=== PATIENT | female | born 1950 | race Caucasian/White ===

== ENCOUNTER 2017-12-24 08:23 | Inpatient (IN) | payer MEDICARE, OTHER ==
[2017-12-24 08:27] VITALS: BMI 29.9
[2017-12-24 09:29] LABS: BASO # 0.1 K/uL (0.0-0.2); EOS # 0.1 K/uL (0.0-0.7); EOS % 0.7 % (0.0-4.0); HEMOGLOBIN 10.2 g/dL (11.0-16.0); LYMPH # 2.2 K/uL (1.0-4.3); LYMPH % 28.7 % (20.0-40.0); MEAN CELL VOLUME 84.4 fL (81.0-99.0); MEAN CORPUSCULAR HEMOGLOBIN 27.9 pg (27.0-31.0); MEAN PLATELET VOLUME 10.2 fL (7.2-11.7); MONO # 0.6 K/uL (0.0-0.8); MONO % 8.6 % (0.0-10.0); NEUT # 4.6 K/uL (1.8-7.0); RBC 3.66 Mil/uL (3.80-5.20); RED CELL DISTRIBUTION WIDTH 14.9 % (11.5-14.5); WHITE BLOOD COUNT 7.5 K/uL (4.8-10.8)
[2017-12-24 09:46] LABS: ALB/GLOB RATIO 1.3 (1.0-2.1); ALBUMIN 4.4 g/dL (3.5-5.0); ALT/SGPT 23 U/L (9-52); AST/SGOT 21 U/L (14-36); BLOOD UREA NITROGEN 22 mg/dL (7-17); CALCIUM 9.3 mg/dl (8.6-10.4); GFR NON-AFRICAN AMERICAN > 60
--- NOTE | 2017-12-24 09:56 | RAD ---
Date of service: 12/24/2017 PROCEDURE: Right Ankle Radiographs. HISTORY: cellulitis COMPARISON: Correlation made with concurrent radiographs of the right tibia and fibula. FINDINGS: BONES: No definitive radiographic evidence acute displaced fracture nor dislocation. The osseous structures intact. Talar dome intact. Plantar and posterior calcaneal enthesophyte formation present. JOINTS: Normal. No osteoarthritis. Ankle mortise maintained. . SOFT TISSUES: Moderate diffuse bilateral soft tissue swelling medial greater than lateral ; rule out sequela of cellulitis or trauma. Vascular etiology not excluded. . Suspect small be a small joint effusion OTHER FINDINGS: None. IMPRESSION: No evidence of acute displaced fracture nor dislocation.Moderate diffuse bilateral soft tissue swelling medial greater than lateral ; rule out sequela of cellulitis or trauma. Vascular etiology not excluded. There also appears to be a small joint effusion.
--- NOTE | 2017-12-24 09:57 | RAD ---
Date of service: 12/24/2017 HISTORY: SOB COMPARISON: No prior. TECHNIQUE: Chest PA and lateral FINDINGS: LUNGS: No acute infiltrates. Mild biapical pleural thickening. PLEURA: As above. No significant pleural effusion identified. No pneumothorax apparent. CARDIOVASCULAR: Normal. OSSEOUS STRUCTURES: Mild multilevel degenerative spondylosis of the thoracic spine. VISUALIZED UPPER ABDOMEN: Normal. OTHER FINDINGS: None. IMPRESSION: No active disease. Mild biapical pleural thickening
--- NOTE | 2017-12-24 09:59 | RAD ---
Date of service: 12/24/2017 PROCEDURE: Radiographs of the right tibia and fibula. HISTORY: Cellulitis COMPARISON: None available TECHNIQUE: Frontal and lateral views obtained. FINDINGS: BONES: No evidence of acute displaced fracture nor dislocation. The osseous structures appear intact. No obvious cortical destructive changes. JOINT SPACES: Unremarkable. OTHER FINDINGS: Mild diffuse infiltration changes of the subcutaneous tissues and mild soft tissue swelling most pronounced about the ankle. Findings may represent cellulitis. Consider followup MRI if further evaluation is required to exclude early osteomyelitis if indicated. . No subcutaneous emphysema or radiopaque foreign bodies. IMPRESSION: No evidence of acute displaced fracture nor dislocation. No definitive cortical destructive changes. Consider followup MRI to exclude early osteomyelitis if indicated. .
--- NOTE | 2017-12-24 10:02 | C.PDOC ---
History Of Present Illness 67 y/o female sent to ED by I&D doctor for further evaluation of right leg cellulitis for 1 month. Patient has been treated with outpatient Antibiotics and no improvement has been noted. Patient denies fever, chills or any other complaints at this time. Time Seen by Provider: 12/24/17 08:43 Chief Complaint (Nursing): Lower Extremity Problem/Injury History Per: Patient History/Exam Limitations: no limitations Onset/Duration Of Symptoms: Days Current Symptoms Are (Timing): Still Present Past Medical History Reviewed: Historical Data, Nursing Documentation, Vital Signs Vital Signs: Last Vital Signs Temp 98.3 F 12/24/17 08:33 Pulse 58 L 12/24/17 10:40 Resp 18 12/24/17 10:40 BP 109/65 12/24/17 10:40 Pulse Ox 97 12/24/17 10:40 - Medical History PMH: HTN Surgical History: No Surg Hx Family History: States: No Known Family Hx - Social History Hx Tobacco Use: No Hx Alcohol Use: No Hx Substance Use: No Review Of Systems Except As Marked, All Systems Reviewed And Found Negative. Musculoskeletal: Positive for: Leg Pain Physical Exam - Physical Exam Appears: Non-toxic, No Acute Distress Skin: Warm, Dry, No Rash, Other (right anterior tib-fib distal ulceration and cellulitic process with erythema) Head: Atraumatic, Normacephalic Eye(s): bilateral: Normal Inspection Oral Mucosa: Moist Cardiovascular: Rhythm Regular Respiratory: Normal Breath Sounds, No Rales, No Rhonchi, No Wheezing Gastrointestinal/Abdominal: Soft, No Tenderness, No Guarding, No Rebound Extremity: Normal ROM, No Calf Tenderness, Capillary Refill (<2 seconds), No Deformity Pulses: Right Dorsalis Pedis: Normal Neurological/Psych: Oriented x3, Normal Motor, Normal Sensation ED Course And Treatment - Laboratory Results Result Diagrams: 12/24/17 09:24 12/24/17 09:24 ECG: Interpreted By Me, Viewed By Me ECG Rhythm: Sinus Rhythm, R BBB Rate From EC (BPM) O2 Sat by Pulse Oximetry: 100 (RA ) Pulse Ox Interpretation: Normal Medical Decision Making Medical Decision Making: Assessment: Cellulitis Disposition Discussed With : Marco A Rosales Doctor Will See Patient In The: Hospital Counseled Patient/Family Regarding: Studies Performed, Diagnosis - Disposition Referrals: Lani Solares MD [Staff Provider] - Disposition: HOSPITALIZED Disposition Time: 11:05 Condition: FAIR Forms: [facility] (Tajik) - Clinical Impression Clinical Impression: Cellulitis - Scribe Statement The provider has reviewed the documentation as recorded by the Scriblorraine Thorpe All medical record entries made by the Jamibe were at my direction and personally dictated by me. I have reviewed the chart and agree that the record accurately reflects my personal performance of the history, physical exam, medical decision making, and the department course for this patient. I have also personally directed, reviewed, and agree with the discharge instructions and disposition.
[2017-12-24] MEDS ORDERED: Dextrose 5%/0.45% NS 1,000 ML IV ONE (11:38)
[2017-12-24] MEDS: Dextrose 5%/0.45% NS 1,000 ML IV SCH (11:45)
[2017-12-24] MEDS: Ceftaroline 600 MG in Sodium Chloride 0.9% 100 ML IVPB SCH ×2 (12:00→22:43)
--- NOTE | 2017-12-24 17:41 | CARD ---
APPROVED REPORT Date of service: 12/24/2017 EKG Measurement Heart [id number] <Conclusion> Normal sinus rhythm Right bundle branch block Abnormal ECG
--- NOTE | 2017-12-24 19:59 | CP.PCM.HP ---
History of Present Illness - History of Present Illness History of Present Illness: 67 years old female complaining of a cellulitis of the right lower leg for a month. She was treated as an outpatient with oral antibiotic without improvement. She is hospitalized for IV antibiotics. Present on Admission - Present on Admission Any Indicators Present on Admission: No Review of Systems - Integumentary Additional comments: Cellulitis of the right lower leg. Past Patient History - Past Social History Smoking Status: Former Smoker Alcohol: None Drugs: Denies Home Situation {Lives}: With Family Domestic Violence: Negative - CARDIAC Hx Hypertension: Yes - PSYCHIATRIC Hx Substance Use: No - SURGICAL HISTORY Hx Surgeries: Yes Hx Eye Surgery: Yes (LEFT CATARACT SURGERY PER PATIENT) - ANESTHESIA Hx Anesthesia: Yes Meds Allergies/Adverse Reactions: Allergies Allergy/AdvReac Type Severity Reaction Status Date / Time No Known Allergies Allergy Verified 12/24/17 08:26 Physical Exam - Constitutional Appears: Well, No Acute Distress - Head Exam Head Exam: NORMAL INSPECTION - Eye Exam Eye Exam: Normal appearance Pupil Exam: NORMAL ACCOMODATION - ENT Exam ENT Exam: Normal Exam - Neck Exam Neck exam: Positive for: Normal Inspection - Respiratory Exam Respiratory Exam: Clear to Auscultation Bilateral, NORMAL BREATHING PATTERN - Cardiovascular Exam Cardiovascular Exam: REGULAR RHYTHM - GI/Abdominal Exam GI & Abdominal Exam: Normal Bowel Sounds, Soft - Rectal Exam Rectal Exam: Deferred - Extremities Exam Additional comments: Cellulitis of the right lower leg. - Back Exam Back exam: NORMAL INSPECTION - Neurological Exam Neurological exam: Alert, Oriented x3 - Psychiatric Exam Psychiatric exam: Anxious - Skin Skin Exam: Dry, Intact, Normal Color Results - Vital Signs Recent Vital Signs: Last Vital Signs Temp 98.9 F 12/24/17 16:00 Pulse 68 12/24/17 16:00 Resp 20 12/24/17 16:00 BP 124/58 L 12/24/17 16:00 Pulse Ox 99 12/24/17 16:00 - Labs Result Diagrams: 12/24/17 09:24 12/24/17 09:24 Labs: Laboratory Results - last 24 hr 12/24/17 12/24/17 09:24 09:24 WBC 7.5 RBC 3.66 L Hgb 10.2 L Hct 30.9 L MCV 84.4 MCH 27.9 MCHC 33.0 RDW 14.9 H Plt Count 211 MPV 10.2 Neut % (Auto) 61.0 Lymph % (Auto) 28.7 [place] % (Auto) 8.6 Eos % (Auto) 0.7 Baso % (Auto) 1.0 Neut # (Auto) 4.6 Lymph # (Auto) 2.2 [place] # (Auto) 0.6 Eos # (Auto) 0.1 Baso # (Auto) 0.1 ESR 42 H Sodium 142 Potassium 4.1 Chloride 103 Carbon Dioxide 27 Anion Gap 16 BUN 22 H Creatinine 0.9 Est GFR ( Amer) > 60 Est GFR (Non-Af Amer) > 60 Random Glucose 125 H Calcium 9.3 Total Bilirubin 0.6 AST 21 ALT 23 Alkaline Phosphatase 73 Total Protein 7.9 Albumin 4.4 Globulin 3.5 Albumin/Globulin Ratio 1.3 Assessment & Plan (1) Cellulitis Assessment and Plan: Cellulitis of the right lower leg. On IV antibiotic as per Dr Solares. Status: Acute (2) Hypertension Assessment and Plan: To continue Enalapril. Status: Chronic Decision To Admit - Pt Status Changed To: Hospital Disposition Of: Inpatient - Admit Certification Admit to Inpatient:: After my assessment, the patient will require hospitalization for at least two midnights. This is because of the severity of symptoms shown, intensity of services needed, and/or the medical risk in this patient being treated as an outpatient. - InPatient: Physician Admission Certification:: After my assessments, the patient requires hospitalization for at least 2 midnights. - . Bed Request Type: Regular Admitting Physician: Marco A Rosales
[2017-12-25] MEDS: Dextrose 5%/0.45% NS 1,000 ML IV SCH ×2 (01:00→13:13)
[2017-12-25] MEDS: Enoxaparin 40 mg Syringe SC SCH (09:35)
[2017-12-25] MEDS: Ceftaroline 600 MG in Sodium Chloride 0.9% 100 ML IVPB SCH ×2 (10:22→23:51)
--- NOTE | 2017-12-25 14:02 | CP.PCM.CON ---
History of Present Illness - History of Present Illness History of Present Illness: INFECTIOUS DISEASE CONSULTATION PACO LEUNG MD, FACP 3T [id number] 12/25/2017 CHART REVIEWED PT EXAMINED CASE DISCUSSED WITH PMD DR ENRIQUEZ, DR MARINO, AND DR Aniya NORIEGA THIS PATIENT IS A 67 YEAR OLD FEMALE REFERRED BY DR ENRIQUEZ FOR LOCAL TRAUMA TO HER RIGHT [place]KLE [place]. SHE APPARENTLY WAS TREATED WITH CONVENTIONAL ANTIBIOTICS INITIALLY. INFECTIOUS DISEASE CONSULTATION WAS FOCUSED ON ANTI STREP, MRSA AND ANTI SPOROTRICOSIS TREATMENT. HISTORICALLY SHE HAD A POSSIBLE THORN PENETRATE HER ANTERIOR RIGHT ANKLE(?), POTENTIALLY DUE TO SPOROTHRIX SCHENCKII. HER CONDITION APPEARED TO HAVE A DELAYED RESPONCE AND ADMISSION WAS ADVISED ACCORDINGLY. PMHX: HTN DYSLIPEDEMIA HEART MURMUR DENIES ALERGIES TO MED NO RECENT TOBACCO NO RECENT ETOH FAMILY HX NOT APPLICABLE FROM THE [place] INITIALLY, PER PT. VSS AWAKE ALERT, ANXIUS OVER CONDITION SUPPLE NECT CHEST CLEAR COR RR, MURMUR APPRECIATED MILD IN NATURE BY ASCULATION ABD SOFT LEGS 2= EDEMA ONLY LOWER ANTERIOR RIGHT ANKLE NOW SHOWS DRYING LESION CENTRALLY SINCE STARTING ITRACONAZOLE WITH SOME MILD SEROUS FLUID DUE TO WALKING AND DEPENDENT EDEMA. NO PHLEBITIS, NO LYMPHANGITIS OR LYMPHADENOPATHY NEURO GROSSLY INTACT AFFECT NOTED IMPRESSION: LOCAL CELLULITIS AND POSSIBLE SPOROTRICOSIS INFECTION ANTERIOR RIGHT ANKLE. C/S IV TEFLARO ITRACONAZOLE 200MG PO OD FIRST, MAY NEED PROLONGED TREATMENT. PT ANXIOUS OVER HER SCHEDULED VACATION TIME. CHECK FOR DEEP INFECTION SEEING DR MARINO CARDIOLOGY PODIATRY CALLED IN PERSONALLY. PACO LEUNG MD, FACP TRIPLE BOARD CERTIFIED IN INFECTIOUS DISEASE Past Patient History - Past Medical History & Family History Past Medical History?: Yes - Past Social History Smoking Status: Former Smoker - CARDIAC Hx Hypertension: Yes - MUSCULOSKELETAL/RHEUMATOLOGICAL Hx Falls: Yes - PSYCHIATRIC Hx Substance Use: No - SURGICAL HISTORY Hx Surgeries: Yes Hx Eye Surgery: Yes (LEFT CATARACT SURGERY PER PATIENT) - ANESTHESIA Hx Anesthesia: Yes Hx Anesthesia Reactions: No Meds Allergies/Adverse Reactions: Allergies Allergy/AdvReac Type Severity Reaction Status Date / Time No Known Allergies Allergy Verified 12/24/17 08:26 - Medications Medications: Current Medications Acetaminophen (Tylenol 325mg Tab) 650 mg PO Q6 PRN PRN Reason: Headache Last Admin: 12/24/17 22:43 Dose: 650 mg Enalapril Maleate (Vasotec) 20 mg PO DAILY [facility] Last Admin: 12/25/17 09:34 Dose: 20 mg Enoxaparin Sodium (Lovenox) 40 mg SC DAILY [facility] Last Admin: 12/25/17 09:35 Dose: 40 mg Ceftaroline Fosamil 600 mg/ (Sodium Chloride) 100 mls @ 100 mls/hr IVPB Q12H [facility] PRN Reason: Protocol Last Admin: 12/25/17 10:22 Dose: 100 mls/hr Dextrose/Sodium Chloride (Dextrose 5%/0.45% Ns 1000 Ml) 1,000 mls @ 80 mls/hr IV .[id number] [facility] Last Admin: 12/25/17 13:13 Dose: 80 mls/hr Itraconazole (Sporanox) 200 mg PO DAILY [facility] PRN Reason: Protocol Last Admin: 12/25/17 10:22 Dose: 200 mg Metronidazole (Flagyl) 500 mg PO Q8 [facility] PRN Reason: Protocol Pneumococcal Polyvalent Vaccine (Pneumovax 23 Vaccine) 0.5 ml IM .ONCE ONE Stop: 12/26/17 10:01 Results - Vital Signs Recent Vital Signs: Last Vital Signs Temp 98.7 F 12/25/17 08:00 Pulse 71 12/25/17 08:00 Resp 20 12/25/17 08:00 BP 144/75 12/25/17 09:34 Pulse Ox 99 12/25/17 08:00 - Labs Result Diagrams: 12/24/17 09:24 12/24/17 09:24
--- NOTE | 2017-12-25 14:45 | CP.PCM.PN ---
Subjective - Date & Time of Evaluation Date of Evaluation: 12/25/17 Time of Evaluation: 14:43 - Subjective Subjective: Right lower leg lesion appears to be unchanged with a dry, black central area and erythematous and oozing peripheral area. On IV antibiotics by Dr Solares. Afebrile. Objective - Vital Signs/Intake and Output Vital Signs (last 24 hours): Temp Pulse Resp BP Pulse Ox 98.7 F 71 20 144/75 99 12/25/17 08:00 12/25/17 08:00 12/25/17 08:00 12/25/17 09:34 12/25/17 08:00 Intake and Output: 12/25/17 12/25/17 06:59 18:59 Intake Total 1780 Balance 1780 - Medications Medications: Current Medications Acetaminophen (Tylenol 325mg Tab) 650 mg PO Q6 PRN PRN Reason: Headache Last Admin: 12/24/17 22:43 Dose: 650 mg Enalapril Maleate (Vasotec) 20 mg PO DAILY [facility] Last Admin: 12/25/17 09:34 Dose: 20 mg Enoxaparin Sodium (Lovenox) 40 mg SC DAILY [facility] Last Admin: 12/25/17 09:35 Dose: 40 mg Ceftaroline Fosamil 600 mg/ (Sodium Chloride) 100 mls @ 100 mls/hr IVPB Q12H [facility] PRN Reason: Protocol Last Admin: 12/25/17 10:22 Dose: 100 mls/hr Dextrose/Sodium Chloride (Dextrose 5%/0.45% Ns 1000 Ml) 1,000 mls @ 80 mls/hr IV .[id number] [facility] Last Admin: 12/25/17 13:13 Dose: 80 mls/hr Itraconazole (Sporanox) 200 mg PO DAILY [facility] PRN Reason: Protocol Last Admin: 12/25/17 10:22 Dose: 200 mg Metronidazole (Flagyl) 500 mg PO Q8 [facility] PRN Reason: Protocol Pneumococcal Polyvalent Vaccine (Pneumovax 23 Vaccine) 0.5 ml IM .ONCE ONE Stop: 12/26/17 10:01 Sodium Hypochlorite (Dakins Solution 0.25%) 0.25 ml EXT DAILY ONE Stop: 12/26/17 14:01 - Labs Labs: 12/24/17 09:24 12/24/17 09:24 - Constitutional Appears: Well, No Acute Distress - Head Exam Head Exam: NORMAL INSPECTION - Eye Exam Eye Exam: Normal appearance Pupil Exam: NORMAL ACCOMODATION - ENT Exam ENT Exam: Normal Exam - Neck Exam Neck Exam: Normal Inspection - Respiratory Exam Respiratory Exam: Clear to Ausculation Bilateral, NORMAL BREATHING PATTERN - Cardiovascular Exam Cardiovascular Exam: REGULAR RHYTHM - GI/Abdominal Exam GI & Abdominal Exam: Soft, Normal Bowel Sounds - Rectal Exam Rectal Exam: Deferred - Extremities Exam Additional comments: Mild right pedal edema. - Neurological Exam Neurological Exam: Alert, Awake, Normal Gait, Oriented x3 - Psychiatric Exam Psychiatric exam: Anxious - Skin Additional comments: Lesion of the right lower leg unchanged. Assessment and Plan (1) Cellulitis Assessment & Plan: On antibiotics as per Holly Solares. Status: Acute (2) Hypertension Status: Chronic
--- NOTE | 2017-12-25 14:52 | CP.PCM.CON ---
History of Present Illness - History of Present Illness History of Present Illness: Pdiatry: Patient seen with resident Dr Remedios Yu. Full consult t be dictated by Dr Yu. Patient injured herself in the garden and developed and infection in the anterior aspect of her right ankle. She formed a scab over the area that measures about 5.0cm in diameter with some exudate. we debrided some of the scab and got a culture. Xrays were negative for denis changes. MRI results are not available as of yet. We ordered dakins's solution soaks to be done once per shift in order to try to loosen the scab. We will check patient on a daily basis. Past Patient History - Past Medical History & Family History Past Medical History?: Yes - Past Social History Smoking Status: Former Smoker - CARDIAC Hx Hypertension: Yes - MUSCULOSKELETAL/RHEUMATOLOGICAL Hx Falls: Yes - PSYCHIATRIC Hx Substance Use: No - SURGICAL HISTORY Hx Surgeries: Yes Hx Eye Surgery: Yes (LEFT CATARACT SURGERY PER PATIENT) - ANESTHESIA Hx Anesthesia: Yes Hx Anesthesia Reactions: No Meds Allergies/Adverse Reactions: Allergies Allergy/AdvReac Type Severity Reaction Status Date / Time No Known Allergies Allergy Verified 12/24/17 08:26 - Medications Medications: Current Medications Acetaminophen (Tylenol 325mg Tab) 650 mg PO Q6 PRN PRN Reason: Headache Last Admin: 12/24/17 22:43 Dose: 650 mg Enalapril Maleate (Vasotec) 20 mg PO DAILY [facility] Last Admin: 12/25/17 09:34 Dose: 20 mg Enoxaparin Sodium (Lovenox) 40 mg SC DAILY [facility] Last Admin: 12/25/17 09:35 Dose: 40 mg Ceftaroline Fosamil 600 mg/ (Sodium Chloride) 100 mls @ 100 mls/hr IVPB Q12H [facility] PRN Reason: Protocol Last Admin: 12/25/17 10:22 Dose: 100 mls/hr Dextrose/Sodium Chloride (Dextrose 5%/0.45% Ns 1000 Ml) 1,000 mls @ 80 mls/hr IV .[id number] [facility] Last Admin: 12/25/17 13:13 Dose: 80 mls/hr Itraconazole (Sporanox) 200 mg PO DAILY [facility] PRN Reason: Protocol Last Admin: 12/25/17 10:22 Dose: 200 mg Metronidazole (Flagyl) 500 mg PO Q8 [facility] PRN Reason: Protocol Pneumococcal Polyvalent Vaccine (Pneumovax 23 Vaccine) 0.5 ml IM .ONCE ONE Stop: 12/26/17 10:01 Sodium Hypochlorite (Dakins Solution 0.25%) 0.25 ml EXT DAILY ONE Stop: 12/26/17 14:01 Results - Vital Signs Recent Vital Signs: Last Vital Signs Temp 98.7 F 12/25/17 08:00 Pulse 71 12/25/17 08:00 Resp 20 12/25/17 08:00 BP 144/75 12/25/17 09:34 Pulse Ox 99 12/25/17 08:00 - Labs Result Diagrams: 12/24/17 09:24 12/24/17 09:24
[2017-12-25] MEDS ORDERED: Dakin's Topical 0.25%-Half Strength (480 ml) EXT SCH (15:00)
--- NOTE | 2017-12-25 16:42 | CP.PCM.CON ---
History of Present Illness - History of Present Illness History of Present Illness: Podiatry consult note for attending Dr. Ocampo, 67 y/o female with PMHx of HTN was seen and evaluated at bedside for painful cellulitis to the right leg. Patient reports she injured herself with a thorn in her backyard several weeks ago. Patient reports it has been infected since and is getting worse. Patient states she saw her medical doctor who prescribed antibiotics, however sent her to the ED on 12/24/17 as it is not improving. He would like patient to be started on IV Antibiotics after complete workup has been established. Patient denies any other pedal complaints. Patient states she had a fever several days ago, however, denies at F/N/V/SOB/CP at this time. PMHx: HTN PSHx: denied by patient Social History: denies ETOH or tobacco use ALL: NKDA Review of Systems - Review of Systems All systems: reviewed and no additional remarkable complaints except Review of Systems: As per HPI Past Patient History - Past Medical History & Family History Past Medical History?: Yes - Past Social History Smoking Status: Former Smoker - CARDIAC Hx Hypertension: Yes - MUSCULOSKELETAL/RHEUMATOLOGICAL Hx Falls: Yes - PSYCHIATRIC Hx Substance Use: No - SURGICAL HISTORY Hx Surgeries: Yes Hx Eye Surgery: Yes (LEFT CATARACT SURGERY PER PATIENT) - ANESTHESIA Hx Anesthesia: Yes Hx Anesthesia Reactions: No Meds Allergies/Adverse Reactions: Allergies Allergy/AdvReac Type Severity Reaction Status Date / Time No Known Allergies Allergy Verified 12/24/17 08:26 - Medications Medications: Current Medications Acetaminophen (Tylenol 325mg Tab) 650 mg PO Q6 PRN PRN Reason: Headache Last Admin: 12/24/17 22:43 Dose: 650 mg Enalapril Maleate (Vasotec) 20 mg PO DAILY [facility] Last Admin: 12/25/17 09:34 Dose: 20 mg Enoxaparin Sodium (Lovenox) 40 mg SC DAILY [facility] Last Admin: 12/25/17 09:35 Dose: 40 mg Ceftaroline Fosamil 600 mg/ (Sodium Chloride) 100 mls @ 100 mls/hr IVPB Q12H [facility] PRN Reason: Protocol Last Admin: 12/25/17 10:22 Dose: 100 mls/hr Dextrose/Sodium Chloride (Dextrose 5%/0.45% Ns 1000 Ml) 1,000 mls @ 80 mls/hr IV .[id number] [facility] Last Admin: 12/25/17 13:13 Dose: 80 mls/hr Itraconazole (Sporanox) 200 mg PO DAILY [facility] PRN Reason: Protocol Last Admin: 12/25/17 10:22 Dose: 200 mg Metronidazole (Flagyl) 500 mg PO Q8 [facility] PRN Reason: Protocol Last Admin: 12/25/17 15:16 Dose: 500 mg Pneumococcal Polyvalent Vaccine (Pneumovax 23 Vaccine) 0.5 ml IM .ONCE ONE Stop: 12/26/17 10:01 Sodium Hypochlorite (Dakins Solution 0.25%) 0.25 ml EXT DAILY [facility] Physical Exam - Constitutional Appears: Well, Non-toxic, No Acute Distress - Head Exam Head Exam: ATRAUMATIC, NORMOCEPHALIC - Extremities Exam Additional comments: Right Lower Extremity Exam: VASC: DP and PT fully palpable, CFT less than 3 seconds X 10, TG warm to warm, with increasing warmth surrounding the wound, minimal edema noted to the right yumiko-wound region NEURO: grossly intact DERM: 5 cm ulceration noted to the right anterior leg proximal to the ankle joint, wound bed has areas of necrotic skin, granular skin and some fibrosis, some scar formation noted as well, yumiko-wound edema and erythema present, no probe to bone, positive for malodor, positive for drainage ORTHO: patient complains of pain on palpation to the wound area - Neurological Exam Neurological exam: Alert, Oriented x3 - Psychiatric Exam Psychiatric exam: Normal Affect, Normal Mood Results - Vital Signs Recent Vital Signs: Last Vital Signs Temp 98.7 F 12/25/17 08:00 Pulse 71 12/25/17 08:00 Resp 20 12/25/17 08:00 BP 144/75 12/25/17 09:34 Pulse Ox 99 12/25/17 08:00 - Labs Result Diagrams: 12/24/17 09:24 12/24/17 09:24 Assessment & Plan - Assessment and Plan (Free Text) Assessment: 67 y/o female with PMHx of HTN was seen and evaluated at bedside for painful cellulitis to the right leg. Plan: Patient seen and evaluated at bedside with Dr. Ocampo Plan discussed with attending Wound scab formation debrided with #10 blade sterile to obtain a wound culture Wound Culture collected- Pending result Ankle and Tib/Fib X-rays- no signs of osteomyelitis noted, signs of soft tissue swelling MRI- pending read Duplex results- pending ID consult has already been placed- recommendations appreciated Patient wound dressed with Dakin's soaked Wet to dry dressing (gauze, ABD, Kerlix) Dakin's is to be poured over dressing every 6-8 hours Patient and nursing are both aware Podiatry will continue to follow patient while in house Thank you for the consult - Date & Time Date: 12/25/17 Time: 16:50
[2017-12-25] MEDS: Dakin's Topical 0.25%-Half Strength (480 ml) EXT SCH (16:53)
[2017-12-26] MEDS: Dextrose 5%/0.45% NS 1,000 ML IV SCH ×4 (00:45→17:17)
[2017-12-26 09:31] LABS: BASO % 0.2 % (0.0-2.0); EOS # 0.1 K/uL (0.0-0.7); HEMOGLOBIN 10.1 g/dL (11.0-16.0); LYMPH # 1.5 K/uL (1.0-4.3); LYMPH % 26.5 % (20.0-40.0); MEAN CELL VOLUME 83.5 fL (81.0-99.0); MEAN CORPUSCULAR HEMOGLOBIN 27.8 pg (27.0-31.0); MEAN CORPUSCULAR HGB CONC 33.3 g/dL (33.0-37.0); MEAN PLATELET VOLUME 9.9 fL (7.2-11.7); MONO # 0.6 K/uL (0.0-0.8); MONO % 9.5 % (0.0-10.0); NEUT # 3.6 K/uL (1.8-7.0); NEUT % 61.8 % (50.0-75.0); RBC 3.61 Mil/uL (3.80-5.20); RED CELL DISTRIBUTION WIDTH 14.7 % (11.5-14.5); WHITE BLOOD COUNT 5.8 K/uL (4.8-10.8)
[2017-12-26 09:47] LABS: ALB/GLOB RATIO 1.1 (1.0-2.1); ALBUMIN 3.5 g/dL (3.5-5.0); ALT/SGPT 18 U/L (9-52); AST/SGOT 14 U/L (14-36); BLOOD UREA NITROGEN 18 mg/dL (7-17); CALCIUM 8.8 mg/dl (8.6-10.4); GFR NON-AFRICAN AMERICAN > 60
[2017-12-26] MEDS ORDERED: Pneumococcal 23-Valent Vaccine IM ONE (10:00)
[2017-12-26] MEDS: Enoxaparin 40 mg Syringe SC SCH (10:13)
[2017-12-26] MEDS: Ceftaroline 600 MG in Sodium Chloride 0.9% 100 ML IVPB SCH ×2 (10:17→23:51)
[2017-12-26] MEDS: Dakin's Topical 0.25%-Half Strength (480 ml) EXT SCH (10:17)
--- NOTE | 2017-12-26 14:19 | CP.PCM.PN ---
Subjective - Date & Time of Evaluation Date of Evaluation: 12/26/17 Time of Evaluation: 14:07 - Subjective Subjective: INFECTIOUS DISEASE PROGRESS NOTES PACO LEUNG MD, FACP 12/26/2017 3T 361-B THIS PT APPEARS TO BE RESPONDING TO ID/POD/MED MANAGEMENT THE RIGHT ANKLE WOUND HAS LESSENED IN PERIPHERAL REDNES AND THE CENTER AREA WAS CLEANED AND MANAGED BY DR JONES POD SPECIALIST. SHE PRESENTLY HAS A DAKINS SOLUTION WET DRESSING TO LOSSEN HER DRIED ESCHAR. OF NOTE HER HGH A1C IS 6.7 WHICH EXPLAINS A DELAY IN HER RESPONCE MEDICALLY. NO LYMPHANGITIS AND NO CELLULITIS APPRECIATED BEYOND HER INITAL DESCRIPTION. RECOMMEND TO ADJUST HER DIET ACCORDINGLY, AFFECT APPRECIATED, MRI APPARENTLY ORDERED... LABS REVIEWED PT EXAMINED DISCUSSION NOTED. Objective - Vital Signs/Intake and Output Vital Signs (last 24 hours): Temp Pulse Resp BP Pulse Ox 98.2 F 63 20 148/80 97 12/26/17 08:37 12/26/17 08:37 12/26/17 08:37 12/26/17 10:12 12/26/17 08:37 Intake and Output: 12/26/17 12/26/17 06:59 18:59 Intake Total 1000 Balance 1000 - Medications Medications: Current Medications Acetaminophen (Tylenol 325mg Tab) 650 mg PO Q6 PRN PRN Reason: Headache Last Admin: 12/24/17 22:43 Dose: 650 mg Enalapril Maleate (Vasotec) 20 mg PO DAILY [facility] Last Admin: 12/26/17 10:12 Dose: 20 mg Enoxaparin Sodium (Lovenox) 40 mg SC DAILY [facility] Last Admin: 12/26/17 10:13 Dose: 40 mg Ceftaroline Fosamil 600 mg/ (Sodium Chloride) 100 mls @ 100 mls/hr IVPB Q12H [facility] PRN Reason: Protocol Last Admin: 12/26/17 10:17 Dose: 100 mls/hr Dextrose/Sodium Chloride (Dextrose 5%/0.45% Ns 1000 Ml) 1,000 mls @ 80 mls/hr IV .[id number] [facility] Last Admin: 12/26/17 13:44 Dose: Not Given Itraconazole (Sporanox) 200 mg PO DAILY [facility] PRN Reason: Protocol Last Admin: 12/26/17 10:12 Dose: 200 mg Metronidazole (Flagyl) 500 mg PO Q8 [facility] PRN Reason: Protocol Last Admin: 12/26/17 13:58 Dose: 500 mg Sodium Hypochlorite (Dakins Solution 0.25%) 0.25 ml EXT DAILY [facility] Last Admin: 12/26/17 10:17 Dose: 0.25 ml - Labs Labs: 12/26/17 09:19 12/26/17 09:19 Assessment and Plan (1) Sporotrichosis Status: Acute (2) Cellulitis Status: Acute (3) Diabetes Status: Acute (4) Hypertension Status: Chronic (5) Affective personality disorder Status: Suspected
--- NOTE | 2017-12-26 17:15 | CP.PCM.PN ---
Subjective - Date & Time of Evaluation Date of Evaluation: 12/26/17 Time of Evaluation: 17:11 - Subjective Subjective: Podiatry Progress Note for Dr. Ocampo 67F with right anterior leg wound seen at bedside. Patient is AAO x 3 and NAD, resting comfortably in bed. States that pain to wound is well controlled at this time. Denies any acute overnight events or new pedal complaints at this time. Denies any recent N/V/F/C/CP/SOB/D/posterior calf pain when squeezed. Objective - Vital Signs/Intake and Output Vital Signs (last 24 hours): Temp Pulse Resp BP Pulse Ox 97.6 F 67 20 117/69 96 12/26/17 16:00 12/26/17 16:00 12/26/17 16:00 12/26/17 16:00 12/26/17 16:00 Intake and Output: 12/26/17 12/26/17 06:59 18:59 Intake Total 1000 1480 Balance 1000 1480 - Medications Medications: Current Medications Acetaminophen (Tylenol 325mg Tab) 650 mg PO Q6 PRN PRN Reason: Headache Last Admin: 12/24/17 22:43 Dose: 650 mg Enalapril Maleate (Vasotec) 20 mg PO DAILY [facility] Last Admin: 12/26/17 10:12 Dose: 20 mg Enoxaparin Sodium (Lovenox) 40 mg SC DAILY [facility] Last Admin: 12/26/17 10:13 Dose: 40 mg Ceftaroline Fosamil 600 mg/ (Sodium Chloride) 100 mls @ 100 mls/hr IVPB Q12H [facility] PRN Reason: Protocol Last Admin: 12/26/17 10:17 Dose: 100 mls/hr Dextrose/Sodium Chloride (Dextrose 5%/0.45% Ns 1000 Ml) 1,000 mls @ 80 mls/hr IV .[id number] [facility] Last Admin: 12/26/17 13:44 Dose: Not Given Itraconazole (Sporanox) 200 mg PO DAILY [facility] PRN Reason: Protocol Last Admin: 12/26/17 10:12 Dose: 200 mg Metronidazole (Flagyl) 500 mg PO Q8 [facility] PRN Reason: Protocol Last Admin: 12/26/17 13:58 Dose: 500 mg Saccharomyces Boulardii (Florastor) 500 mg PO BID [facility] Sodium Hypochlorite (Dakins Solution 0.25%) 0.25 ml EXT DAILY [facility] Last Admin: 12/26/17 10:17 Dose: 0.25 ml - Labs Labs: 12/26/17 09:19 12/26/17 09:19 - Constitutional Appears: Well, Non-toxic, No Acute Distress - Extremities Exam Additional comments: Right Lower Extremity Exam: VASC: DP and PT fully palpable, CFT less than 3 seconds X 10, TG warm to warm, with increasing warmth surrounding the wound, minimal edema noted to the right yumiko-wound region NEURO: grossly intact DERM: 5 cm ulceration noted to the right anterior leg proximal to the ankle joint, wound bed has areas of necrotic skin improved since yesterday, granular skin and some fibrosis,some scar formation noted as well, yumiko-wound edema and erythema present, no probe to bone, malodor improving, minimal drainage noted ORTHO: patient complains of pain on palpation to the wound area but no pain when wound is left alone - Neurological Exam Neurological Exam: Alert, Awake, Oriented x3 - Psychiatric Exam Psychiatric exam: Normal Affect, Normal Mood Assessment and Plan - Assessment and Plan (Free Text) Assessment: 67F with right anterior leg wound Plan: Patient seen and evaluated Plan discussed with Dr. Ocampo Absent leukocytosis Continue abx per ID Wound Cx: Pending Ankle X-ray/Tib Fib X-ray (12/24/17): no fx/dislocation, no soft tissue emphysema noted, minimal soft tissue swelling Arterial duplex: Report pending HgA2c: 6.7 No plan for surgical intervention at this time Wound dressed with Daikins solution, Telfa, DSD, ABD Podiatry will continue to follow while patient in house
[2017-12-26] MEDS: Saccharomyces Boulardi 250 mg Cap PO SCH (17:17)
[2017-12-27] MEDS: Dextrose 5%/0.45% NS 1,000 ML IV SCH ×2 (01:45→08:41)
[2017-12-27 09:03] VITALS: RESP 20
[2017-12-27] MEDS: Saccharomyces Boulardi 250 mg Cap PO SCH ×2 (10:05→17:54)
[2017-12-27] MEDS: Enoxaparin 40 mg Syringe SC SCH (10:05)
[2017-12-27] MEDS: Dakin's Topical 0.25%-Half Strength (480 ml) EXT SCH (10:16)
--- NOTE | 2017-12-27 10:30 | VASCLAB ---
Date of service: 12/24/2017 PROCEDURE: Right Lower Extremity Venous Duplex Exam. HISTORY: cellulitis PRIORS: None. TECHNIQUE: Right common femoral, femoral, popliteal and posterior tibial, peroneal and great saphenous veins were evaluated. Flow was assessed with color Doppler, compressibility, assessment of phasic flow and augmentation response. Report prepared by CATHY Zhang, RVT FINDINGS: RIGHT: 1. Common Femoral Vein: 1.1. Compressibility - Fully compressible: Thrombus - None: Flow - Phasic: Augmentation -Normal: Reflux - None. 2. Femoral Vein: 2.1. Compressibility - Fully compressible: Thrombus - None: Flow - Phasic: Augmentation -Normal: Reflux - None. 3. Popliteal Vein: 3.1. Compressibility - Fully compressible: Thrombus - None: Flow - Phasic: Augmentation -Normal: Reflux - None. 4. Posterior Tibial Vein: 4.1. Compressibility - Fully compressible: Thrombus - None: Flow - Phasic: Augmentation -Normal: Reflux - None. 5. Peroneal Vein: 5.1. Compressibility - Fully compressible: Thrombus - None: Flow - Phasic: Augmentation -Normal: Reflux - None. 6. Great Saphenous Vein: 6.1. Compressibility - Fully compressible: Thrombus -None: Flow - Phasic: Augmentation - Normal: Reflux - None. OTHER FINDINGS: IMPRESSION: No evidence of deep or superficial vein thrombosis of the right lower extremity with excellent venous flow. Normal valve function noted of the right side. Normal venous flow noted in the left common femoral vein.
--- NOTE | 2017-12-27 11:06 | CP.PCM.PN ---
Subjective - Date & Time of Evaluation Date of Evaluation: 12/27/17 Time of Evaluation: 10:45 - Subjective Subjective: Podiatry Patient seen resting in bed along with resident Dr Long Shin. Wound redressed. It looks markedly better with much less erythema. There still is a central portion of infected fibrotic tissue which is reducing in size. To continue dakin's solution soaks and IV antibiotics. MRI results not on chart as of yet. To continue as ordered. Objective - Vital Signs/Intake and Output Vital Signs (last 24 hours): Temp Pulse Resp BP Pulse Ox 98.2 F 65 20 120/70 97 12/27/17 09:02 12/27/17 09:02 12/27/17 09:02 12/27/17 10:05 12/27/17 09:02 Intake and Output: 12/27/17 12/27/17 06:59 18:59 Intake Total 940 Balance 940 - Medications Medications: Current Medications Acetaminophen (Tylenol 325mg Tab) 650 mg PO Q6 PRN PRN Reason: Headache Last Admin: 12/24/17 22:43 Dose: 650 mg Enalapril Maleate (Vasotec) 20 mg PO DAILY [facility] Last Admin: 12/27/17 10:05 Dose: 20 mg Enoxaparin Sodium (Lovenox) 40 mg SC DAILY [facility] Last Admin: 12/27/17 10:05 Dose: 40 mg Ceftaroline Fosamil 600 mg/ (Sodium Chloride) 100 mls @ 100 mls/hr IVPB Q12H [facility] PRN Reason: Protocol Last Admin: 12/26/17 23:51 Dose: 100 mls/hr Dextrose/Sodium Chloride (Dextrose 5%/0.45% Ns 1000 Ml) 1,000 mls @ 80 mls/hr IV .[id number] [facility] Last Admin: 12/27/17 08:41 Dose: 80 mls/hr Itraconazole (Sporanox) 200 mg PO DAILY [facility] PRN Reason: Protocol Last Admin: 12/27/17 10:06 Dose: 200 mg Metronidazole (Flagyl) 500 mg PO Q8 [facility] PRN Reason: Protocol Last Admin: 12/27/17 05:04 Dose: 500 mg Saccharomyces Boulardii (Florastor) 500 mg PO BID [facility] Last Admin: 12/27/17 10:05 Dose: 500 mg Sodium Hypochlorite (Dakins Solution 0.25%) 0.25 ml EXT DAILY [facility] Last Admin: 12/27/17 10:16 Dose: 0.25 ml - Labs Labs: 12/26/17 09:19 12/26/17 09:19
[2017-12-27] MEDS: Ceftaroline 600 MG in Sodium Chloride 0.9% 100 ML IVPB SCH ×2 (11:19→22:17)
--- NOTE | 2017-12-27 16:43 | CP.PCM.PN ---
Subjective - Date & Time of Evaluation Date of Evaluation: 12/27/17 Time of Evaluation: 16:37 - Subjective Subjective: INFECTIOUS DISEASE PROGRESS NOTES PACO LEUNG MD, FACP 3T 361-B 12/27/2017 CHART REVIEWED PT EXAMINED CASE DISCUSSED WITH DR SCHULTZ, PT, AND SON-PRESENT. CLINICALLY THE WOUND HAS NOW LOST THE REDNESS SURROUNDING THE WOUND-LIKE CELLULITIS, HER CENTRAL NECROTIC AREA HAS BEEN DEBRIDED AND IS RESPONDING TO IV/PO AND TOPICAL TREATMENT. CONTINUE TREATMENT PLAN RECHECK LABS TOMORROW CONSIDER POSSIBLE HOME CARE WEDNESDAY PM, IF SHE CONTINUES TO RESPOND CLINICALLY. I OFFERED MY OPINION THAT I DO NOT RECOMMEND TRAVELING TO [place] THIS WEEKEND. LUNGS CLEAR COR RR ABD SOFT-ON FLORASTOR EXT ABOVE. CELLULITIS AND SPOROTRICOSIS WOUND INFECTION RIGHT ANKLE. Objective - Vital Signs/Intake and Output Vital Signs (last 24 hours): Temp Pulse Resp BP Pulse Ox 97.7 F 64 20 136/78 98 12/27/17 16:00 12/27/17 16:00 12/27/17 16:00 12/27/17 16:00 12/27/17 16:00 Intake and Output: 12/27/17 12/27/17 06:59 18:59 Intake Total 940 1040 Balance 940 1040 - Medications Medications: Current Medications Acetaminophen (Tylenol 325mg Tab) 650 mg PO Q6 PRN PRN Reason: Headache Last Admin: 12/24/17 22:43 Dose: 650 mg Enalapril Maleate (Vasotec) 20 mg PO DAILY [facility] Last Admin: 12/27/17 10:05 Dose: 20 mg Enoxaparin Sodium (Lovenox) 40 mg SC DAILY [facility] Last Admin: 12/27/17 10:05 Dose: 40 mg Ceftaroline Fosamil 600 mg/ (Sodium Chloride) 100 mls @ 100 mls/hr IVPB Q12H [facility] PRN Reason: Protocol Last Admin: 12/27/17 11:19 Dose: 100 mls/hr Itraconazole (Sporanox) 200 mg PO DAILY [facility] PRN Reason: Protocol Last Admin: 12/27/17 10:06 Dose: 200 mg Metronidazole (Flagyl) 500 mg PO Q8 [facility] PRN Reason: Protocol Last Admin: 12/27/17 13:24 Dose: 500 mg Saccharomyces Boulardii (Florastor) 500 mg PO BID [facility] Last Admin: 12/27/17 10:05 Dose: 500 mg Sodium Hypochlorite (Dakins Solution 0.25%) 0.25 ml EXT DAILY [facility] Last Admin: 12/27/17 10:16 Dose: 0.25 ml - Labs Labs: 12/26/17 09:19 12/26/17 09:19 Assessment and Plan (1) Sporotrichosis Status: Acute (2) Cellulitis Status: Acute (3) Diabetes Status: Acute (4) Hypertension Status: Chronic (5) Affective personality disorder Status: Suspected
--- NOTE | 2017-12-27 20:19 | MRI ---
MRI right ankle History: Ulceration. Comparison: None available. Technique: Multi-echo multiplanar sequences were performed through the right ankle without the use of intravenous contrast. Findings: Edema and skin thickening noted in the lower leg anteriorly. Cellulitis of the lower leg. Soft tissue defect noted within the anterior soft tissues, at the level of the distal tibia, at the level of the traversing anterior tibial tendon. Mild tenosynovitis of the anterior tibial tendon sheath. Remainder of the anterior extensor tendons are grossly preserved. Mild to moderate tenosynovitis of the posterior tibial tendon sheath. Remainder of the medial flexor tendons are preserved. Prominent split tear of the peroneus brevis tendon. Moderate tenosynovitis of the peroneal tendon sheath at its inframalleolar portion. Anterior and posterior tibiofibular ligaments are preserved. Anterior and posterior talofibular ligaments are preserved. Visualized musculature appears grossly preserved. Mild to moderate distal Achilles tendinopathy with interstitial delamination. Plantar fascia is preserved. Sinus tarsi is preserved. Small ankle joint effusion. Degenerative changes at the talonavicular joint space Small ankle joint effusion. Degenerative changes noted at the distal pole of the medial cuneiform bone with decreased T1 signal and increased STIR signal suggestive for osteochondral change and or developing subchondral cyst formation. Clinical correlation. Deltoid ligament is preserved. Prominent reticulation and edema seen within the circumferential subcutaneous soft tissues. Impression: 1. Prominent soft tissue defect seen within the anterior soft tissues at the level of the distal tibia with associated prominent cellulitis of the lower extremity. No evidence of adjacent signal abnormality within the osseous structures at that level. 2. Mild tenosynovitis of the anterior tibial tendon sheath. 3. Mild to moderate tenosynovitis of the posterior tibial tendon sheath. 4. Prominent split tear of the peroneus brevis tendon. Moderate tenosynovitis of the peroneal tendon sheath at its inframalleolar portion. 5. Mild to moderate distal Achilles tendinopathy with interstitial delamination. 6. Small ankle joint effusion. 7. Degenerative changes at the talonavicular joint space 8. Small ankle joint effusion. 9. Degenerative changes noted at the distal pole of the medial cuneiform bone with decreased T1 signal and increased STIR signal suggestive for osteochondral change and or developing subchondral cyst formation. Clinical correlation. 10. Prominent reticulation and edema seen within the circumferential subcutaneous soft tissues. These findings were preliminarily reported at 6:01 p.m. on 12/27/[address] Sybil Wallis from [employer] [facility].
--- NOTE | 2017-12-27 23:20 | CP.PCM.PN ---
Subjective - Date & Time of Evaluation Date of Evaluation: 12/27/17 Time of Evaluation: 13:45 - Subjective Subjective: Patient has no complaint. Ankle wound healing. MRI did not show any osteomyelitis Objective - Vital Signs/Intake and Output Vital Signs (last 24 hours): Temp Pulse Resp BP Pulse Ox 97.7 F 64 20 136/78 98 12/27/17 16:00 12/27/17 16:00 12/27/17 16:00 12/27/17 16:00 12/27/17 16:00 Intake and Output: 12/27/17 12/28/17 18:59 06:59 Intake Total 1040 860 Balance 1040 860 - Medications Medications: Current Medications Acetaminophen (Tylenol 325mg Tab) 650 mg PO Q6 PRN PRN Reason: Headache Last Admin: 12/24/17 22:43 Dose: 650 mg Enalapril Maleate (Vasotec) 20 mg PO DAILY [facility] Last Admin: 12/27/17 10:05 Dose: 20 mg Enoxaparin Sodium (Lovenox) 40 mg SC DAILY [facility] Last Admin: 12/27/17 10:05 Dose: 40 mg Ceftaroline Fosamil 600 mg/ (Sodium Chloride) 100 mls @ 100 mls/hr IVPB Q12H [facility] PRN Reason: Protocol Last Admin: 12/27/17 22:17 Dose: 100 mls/hr Itraconazole (Sporanox) 200 mg PO DAILY [facility] PRN Reason: Protocol Last Admin: 12/27/17 10:06 Dose: 200 mg Metronidazole (Flagyl) 500 mg PO Q8 [facility] PRN Reason: Protocol Last Admin: 12/27/17 21:52 Dose: 500 mg Saccharomyces Boulardii (Florastor) 500 mg PO BID [facility] Last Admin: 12/27/17 17:54 Dose: 500 mg Sodium Hypochlorite (Dakins Solution 0.25%) 0.25 ml EXT DAILY [facility] Last Admin: 12/27/17 10:16 Dose: 0.25 ml - Labs Labs: 12/26/17 09:19 12/26/17 09:19 - Constitutional Appears: No Acute Distress - Head Exam Head Exam: NORMAL INSPECTION - Eye Exam Eye Exam: Normal appearance Pupil Exam: NORMAL ACCOMODATION - ENT Exam ENT Exam: Normal Exam - Neck Exam Neck Exam: Normal Inspection - Respiratory Exam Respiratory Exam: NORMAL BREATHING PATTERN - Cardiovascular Exam Cardiovascular Exam: REGULAR RHYTHM - GI/Abdominal Exam GI & Abdominal Exam: Soft, Normal Bowel Sounds - Rectal Exam Rectal Exam: Deferred - Extremities Exam Additional comments: Right lower leg under bandage. - Back Exam Back Exam: NORMAL INSPECTION - Neurological Exam Neurological Exam: Alert, Awake, Oriented x3 - Psychiatric Exam Psychiatric exam: Anxious - Skin Skin Exam: Dry, Intact, Warm Assessment and Plan (1) Cellulitis Assessment & Plan: On antibiotics by Dr Solares. Status: Acute (2) Hypertension Status: Chronic
[2017-12-28 08:37] LABS: BASO % 0.4 % (0.0-2.0); EOS # 0.1 K/uL (0.0-0.7); HEMOGLOBIN 10.5 g/dL (11.0-16.0); LYMPH # 2.1 K/uL (1.0-4.3); MEAN CELL VOLUME 83.2 fL (81.0-99.0); MEAN CORPUSCULAR HEMOGLOBIN 27.5 pg (27.0-31.0); MEAN PLATELET VOLUME 9.4 fL (7.2-11.7); MONO # 0.5 K/uL (0.0-0.8); MONO % 8.1 % (0.0-10.0); NEUT # 3.7 K/uL (1.8-7.0); NEUT % 56.5 % (50.0-75.0); RBC 3.83 Mil/uL (3.80-5.20); WHITE BLOOD COUNT 6.5 K/uL (4.8-10.8)
[2017-12-28 08:52] LABS: ALB/GLOB RATIO 1.3 (1.0-2.1); ALBUMIN 3.9 g/dL (3.5-5.0); ALT/SGPT 13 U/L (9-52); AST/SGOT 20 U/L (14-36); BLOOD UREA NITROGEN 17 mg/dL (7-17); CALCIUM 8.8 mg/dl (8.6-10.4); GFR NON-AFRICAN AMERICAN 55
[2017-12-28] MEDS: Saccharomyces Boulardi 250 mg Cap PO SCH ×2 (09:40→17:23)
[2017-12-28] MEDS: Enoxaparin 40 mg Syringe SC SCH (09:40)
[2017-12-28] MEDS: Dakin's Topical 0.25%-Half Strength (480 ml) EXT SCH (09:45)
[2017-12-28] MEDS: Ceftaroline 600 MG in Sodium Chloride 0.9% 100 ML IVPB SCH (11:17)
--- NOTE | 2017-12-28 11:55 | CP.PCM.PN ---
Subjective - Date & Time of Evaluation Date of Evaluation: 12/28/17 Time of Evaluation: 11:53 - Subjective Subjective: Podiatry Progress Note for Dr. Patton 67F with right anterior leg wound seen at bedside. Patient is AAO x 3 and NAD, resting comfortably in bed. States that she is only experiencing minimal, intermittent pain to wound, greatly improved over the last few day. Denies any acute overnight events or new pedal complaints at this time. Denies any recent N /V/F/C/CP/SOB/D/posterior calf pain when squeezed. Objective - Vital Signs/Intake and Output Vital Signs (last 24 hours): Temp Pulse Resp BP Pulse Ox 98.2 F 70 20 117/77 97 12/28/17 08:00 12/28/17 08:00 12/28/17 08:00 12/28/17 09:40 12/28/17 08:00 Intake and Output: 12/28/17 12/28/17 06:59 18:59 Intake Total 1640 Balance 1640 - Medications Medications: Current Medications Acetaminophen (Tylenol 325mg Tab) 650 mg PO Q6 PRN PRN Reason: Headache Last Admin: 12/24/17 22:43 Dose: 650 mg Collagenase (Santyl) 0 gm TOP DAILY [facility] Enalapril Maleate (Vasotec) 20 mg PO DAILY [facility] Last Admin: 12/28/17 09:40 Dose: 20 mg Enoxaparin Sodium (Lovenox) 40 mg SC DAILY [facility] Last Admin: 12/28/17 09:40 Dose: 40 mg Ceftaroline Fosamil 600 mg/ (Sodium Chloride) 100 mls @ 100 mls/hr IVPB Q12H [facility] PRN Reason: Protocol Last Admin: 12/28/17 11:17 Dose: 100 mls/hr Itraconazole (Sporanox) 200 mg PO DAILY [facility] PRN Reason: Protocol Last Admin: 12/28/17 09:41 Dose: 200 mg Metronidazole (Flagyl) 500 mg PO Q8 [facility] PRN Reason: Protocol Last Admin: 12/28/17 05:32 Dose: 500 mg Saccharomyces Boulardii (Florastor) 500 mg PO BID [facility] Last Admin: 12/28/17 09:40 Dose: 500 mg Sodium Hypochlorite (Dakins Solution 0.25%) 0.25 ml EXT DAILY [facility] Last Admin: 12/28/17 09:45 Dose: 0.25 ml - Labs Labs: 12/28/17 08:28 12/28/17 08:28 - Constitutional Appears: Well, Non-toxic, No Acute Distress - Extremities Exam Additional comments: Right Lower Extremity Exam: VASC: DP and PT fully palpable, CFT less than 3 seconds X 10, TG warm to warm WNL with no increased warmth in periwound region. No edema noted b/l. NEURO: Epicritic and protective sensation grossly intact DERM: 5 cm ulceration noted to the right anterior leg proximal to the ankle joint, wound bed is mostly granular skin with central patch of fibrotic skin, some scar formation noted as well, no probe to bone, no malodor, minimal drainage noted ORTHO: patient complains of pain on palpation to the wound area but no pain when wound is left alone - Neurological Exam Neurological Exam: Alert, Awake, Oriented x3 - Psychiatric Exam Psychiatric exam: Normal Affect, Normal Mood Assessment and Plan - Assessment and Plan (Free Text) Assessment: 67F with right anterior leg wound seen at bedside Plan: Patient seen and evaluated with Dr. Patton Afebrile, absent leukocytosis Continue abx per ID Wound Cx: GNR, GPC in chains Ankle X-ray/Tib Fib X-ray (12/24/17): no fx/dislocation, no soft tissue emphysema noted, minimal soft tissue swelling Venous duplex: No evidence of deep or superficial DVT RLE HgA2c: 6.7 MRI: Prominent cellulitis of the lower extremity. No evidence of OM at that level No plan for surgical intervention at this time Wound dressed with Daikins solution, Telfa, DSD, ABD Podiatry will continue to follow while patient in house
[2017-12-28] MEDS: AMPicillin 2 GM in Sodium Chloride 100 ML IVPB SCH ×2 (14:02→19:57)
--- NOTE | 2017-12-28 15:38 | CP.PCM.PN ---
Subjective - Date & Time of Evaluation Date of Evaluation: 12/28/17 Time of Evaluation: 15:37 - Subjective Subjective: INFECTIOUS DISEASE PROGRESS NOTES PACO LEUNG MD, FACP 3T 361-B 12/28/2017 CHART REVIEWED PT EXAMINED CASE DISCUSSED CLINICALLY PT IS IMPROVING DAY BY DAY C/S DEMONSTRATES NOW E.COLI AND ENTEROCOCCUS SPECIES SENSITIVE TO AMPICILLIN, WOULD OF PREFERRED UNASYN IN THE HOSPITAL BUT NOT AVAILABLE. MRI NO BONE INVOLVMENT BYT BUT SOFT TISSUE AND TENDON ISSUES APPRECIATED. PLAN CONTINUE LOCAL CARE, TOPICALS PER PODIATRY, AND ITRACONAZOLE PO PLUS AMPICILLIN FOR MORE SCHEDULED DAYS. LUNGS CLEAN COR RR ABD SOFT NO DIARRHEA WOUND ABOVE CELLULITIS WITH SPORO A A HIGH PROBABLITIY NEW DM Objective - Vital Signs/Intake and Output Vital Signs (last 24 hours): Temp Pulse Resp BP Pulse Ox 98.2 F 70 20 117/77 97 12/28/17 08:00 12/28/17 08:00 12/28/17 08:00 12/28/17 09:40 12/28/17 08:00 Intake and Output: 12/28/17 12/28/17 06:59 18:59 Intake Total 1640 Balance 1640 - Medications Medications: Current Medications Acetaminophen (Tylenol 325mg Tab) 650 mg PO Q6 PRN PRN Reason: Headache Last Admin: 12/24/17 22:43 Dose: 650 mg Collagenase (Santyl) 0 gm TOP DAILY [facility] Enalapril Maleate (Vasotec) 20 mg PO DAILY [facility] Last Admin: 12/28/17 09:40 Dose: 20 mg Enoxaparin Sodium (Lovenox) 40 mg SC DAILY [facility] Last Admin: 12/28/17 09:40 Dose: 40 mg Ampicillin 2 gm/ Sodium (Chloride) 100 mls @ 50 mls/hr IVPB Q6H [facility] PRN Reason: Protocol Last Admin: 12/28/17 14:02 Dose: 50 mls/hr Itraconazole (Sporanox) 200 mg PO DAILY [facility] PRN Reason: Protocol Last Admin: 12/28/17 09:41 Dose: 200 mg Metronidazole (Flagyl) 500 mg PO Q8 [facility] PRN Reason: Protocol Last Admin: 12/28/17 13:11 Dose: 500 mg Saccharomyces Boulardii (Florastor) 500 mg PO BID [facility] Last Admin: 12/28/17 09:40 Dose: 500 mg Sodium Hypochlorite (Dakins Solution 0.25%) 0.25 ml EXT DAILY [facility] Last Admin: 12/28/17 09:45 Dose: 0.25 ml - Labs Labs: 12/28/17 08:28 12/28/17 08:28 Assessment and Plan (1) Sporotrichosis Status: Acute (2) Cellulitis Status: Acute (3) Diabetes Status: Acute (4) Hypertension Status: Chronic (5) Affective personality disorder Status: Suspected
--- NOTE | 2017-12-28 22:17 | CP.PCM.PN ---
Subjective - Date & Time of Evaluation Date of Evaluation: 12/28/17 Time of Evaluation: 16:00 - Subjective Subjective: Patient has less pain at the right lower leg wound. Ampicillin was added for E Coli and Enterococci . Objective - Vital Signs/Intake and Output Vital Signs (last 24 hours): Temp Pulse Resp BP Pulse Ox 98.9 F 77 20 139/74 98 12/28/17 16:00 12/28/17 16:00 12/28/17 16:00 12/28/17 16:00 12/28/17 16:00 Intake and Output: 12/28/17 12/29/17 18:59 06:59 Intake Total 600 300 Balance 600 300 - Medications Medications: Current Medications Acetaminophen (Tylenol 325mg Tab) 650 mg PO Q6 PRN PRN Reason: Headache Last Admin: 12/24/17 22:43 Dose: 650 mg Collagenase (Santyl) 0 gm TOP DAILY [facility] Enalapril Maleate (Vasotec) 20 mg PO DAILY [facility] Last Admin: 12/28/17 09:40 Dose: 20 mg Enoxaparin Sodium (Lovenox) 40 mg SC DAILY [facility] Last Admin: 12/28/17 09:40 Dose: 40 mg Ampicillin 2 gm/ Sodium (Chloride) 100 mls @ 50 mls/hr IVPB Q6H [facility] PRN Reason: Protocol Last Admin: 12/28/17 19:57 Dose: 50 mls/hr Itraconazole (Sporanox) 200 mg PO DAILY [facility] PRN Reason: Protocol Last Admin: 12/28/17 09:41 Dose: 200 mg Metronidazole (Flagyl) 500 mg PO Q8 [facility] PRN Reason: Protocol Last Admin: 12/28/17 21:21 Dose: 500 mg Saccharomyces Boulardii (Florastor) 500 mg PO BID [facility] Last Admin: 12/28/17 17:23 Dose: 500 mg Sodium Hypochlorite (Dakins Solution 0.25%) 0.25 ml EXT DAILY [facility] Last Admin: 12/28/17 09:45 Dose: 0.25 ml - Labs Labs: 12/28/17 08:28 12/28/17 08:28 - Constitutional Appears: Well, No Acute Distress - Head Exam Head Exam: NORMOCEPHALIC - Eye Exam Eye Exam: Normal appearance Pupil Exam: NORMAL ACCOMODATION - ENT Exam ENT Exam: Normal Exam - Neck Exam Neck Exam: Normal Inspection - Respiratory Exam Respiratory Exam: Clear to Ausculation Bilateral, NORMAL BREATHING PATTERN - Cardiovascular Exam Cardiovascular Exam: REGULAR RHYTHM - GI/Abdominal Exam GI & Abdominal Exam: Soft, Normal Bowel Sounds - Rectal Exam Rectal Exam: Deferred - Exam Exam: NORMAL INSPECTION - Extremities Exam Extremities Exam: Normal Inspection - Back Exam Back Exam: NORMAL INSPECTION - Neurological Exam Neurological Exam: Alert, Awake, Oriented x3 - Psychiatric Exam Psychiatric exam: Anxious - Skin Skin Exam: Dry, Normal Color Assessment and Plan (1) Cellulitis Assessment & Plan: On antibiotics by Dr Solares and wound care by Dr Ocampo. Status: Acute (2) Hypertension Status: Chronic (3) Diabetes Assessment & Plan: Try to control by diet for now. Status: Acute
[2017-12-29] MEDS: AMPicillin 2 GM in Sodium Chloride 100 ML IVPB SCH ×4 (01:00→21:11)
--- NOTE | 2017-12-29 08:07 | CP.PCM.PN ---
Subjective - Date & Time of Evaluation Date of Evaluation: 12/29/17 Time of Evaluation: 07:45 - Subjective Subjective: Podiatry: Patient seen resting in bed. Patient seen with Resident Dr Long Shin. Wound right ankle redressed. It continues to improve. The fibrotic area in the central portion is reducing in size. We started to use santyl on this area and I ordered silverdine to be applied to the periphery where there is superficial ulceration. Overall the wound looks much better with almost no edema and no exudate. The MRI was negative for underlying denis involvement. Patient had some change in the IV antibiotics. To continue local care as long as patient is hospitalized. Objective - Vital Signs/Intake and Output Vital Signs (last 24 hours): Temp Pulse Resp BP Pulse Ox 98.1 F 68 20 138/73 96 12/28/17 23:58 12/28/17 23:58 12/28/17 23:58 12/28/17 23:58 12/28/17 23:58 Intake and Output: 12/29/17 12/29/17 06:59 18:59 Intake Total 1260 Balance 1260 - Medications Medications: Current Medications Acetaminophen (Tylenol 325mg Tab) 650 mg PO Q6 PRN PRN Reason: Headache Last Admin: 12/24/17 22:43 Dose: 650 mg Collagenase (Santyl) 0 gm TOP DAILY [facility] Enalapril Maleate (Vasotec) 20 mg PO DAILY [facility] Last Admin: 12/28/17 09:40 Dose: 20 mg Enoxaparin Sodium (Lovenox) 40 mg SC DAILY [facility] Last Admin: 12/28/17 09:40 Dose: 40 mg Ampicillin 2 gm/ Sodium (Chloride) 100 mls @ 50 mls/hr IVPB Q6H [facility] PRN Reason: Protocol Last Admin: 12/29/17 01:00 Dose: 50 mls/hr Itraconazole (Sporanox) 200 mg PO DAILY [facility] PRN Reason: Protocol Last Admin: 12/28/17 09:41 Dose: 200 mg Metronidazole (Flagyl) 500 mg PO Q8 [facility] PRN Reason: Protocol Last Admin: 12/29/17 05:45 Dose: 500 mg Saccharomyces Boulardii (Florastor) 500 mg PO BID [facility] Last Admin: 12/28/17 17:23 Dose: 500 mg Sodium Hypochlorite (Dakins Solution 0.25%) 0.25 ml EXT DAILY [facility] Last Admin: 12/28/17 09:45 Dose: 0.25 ml - Labs Labs: 12/28/17 08:28 12/28/17 08:28
[2017-12-29] MEDS: Dakin's Topical 0.25%-Half Strength (480 ml) EXT SCH (10:43)
[2017-12-29] MEDS: Enoxaparin 40 mg Syringe SC SCH (10:44)
[2017-12-29] MEDS: Saccharomyces Boulardi 250 mg Cap PO SCH ×2 (10:44→18:08)
[2017-12-29] MEDS: Collagenase 250 Units/gm Ointment(30 gm) TOP SCH (10:44)
[2017-12-29] MEDS: Silver Sulfadiazine 1% Cream (20 gm) TOP SCH (11:33)
--- NOTE | 2017-12-29 23:26 | CP.PCM.PN ---
Subjective - Date & Time of Evaluation Date of Evaluation: 12/29/17 Time of Evaluation: 07:30 - Subjective Subjective: Patient still has some edema of the right ankle with cellulitis of the right lower leg. On IV antibiotics. Objective - Vital Signs/Intake and Output Vital Signs (last 24 hours): Temp Pulse Resp BP Pulse Ox 98.2 F 66 20 143/88 97 12/29/17 15:56 12/29/17 15:56 12/29/17 15:56 12/29/17 15:56 12/29/17 15:56 Intake and Output: 12/29/17 12/30/17 18:59 06:59 Intake Total 880 500 Output Total 500 Balance 880 0 - Medications Medications: Current Medications Acetaminophen (Tylenol 325mg Tab) 650 mg PO Q6 PRN PRN Reason: Headache Last Admin: 12/29/17 08:46 Dose: 650 mg Collagenase (Santyl) 0 gm TOP DAILY [facility] Last Admin: 12/29/17 10:44 Dose: 1 tcp Enalapril Maleate (Vasotec) 20 mg PO DAILY [facility] Last Admin: 12/29/17 10:47 Dose: 20 mg Enoxaparin Sodium (Lovenox) 40 mg SC DAILY [facility] Last Admin: 12/29/17 10:44 Dose: 40 mg Ampicillin 2 gm/ Sodium (Chloride) 100 mls @ 50 mls/hr IVPB Q6H [facility] PRN Reason: Protocol Last Admin: 12/29/17 21:11 Dose: 50 mls/hr Itraconazole (Sporanox) 200 mg PO DAILY [facility] PRN Reason: Protocol Last Admin: 12/29/17 10:47 Dose: 200 mg Metronidazole (Flagyl) 500 mg PO Q8 [facility] PRN Reason: Protocol Last Admin: 12/29/17 23:22 Dose: 500 mg Saccharomyces Boulardii (Florastor) 500 mg PO BID [facility] Last Admin: 12/29/17 18:08 Dose: 500 mg Silver Sulfadiazine (Silvadene 1% 20 Gm) 0 ea TOP DAILY [facility] Last Admin: 12/29/17 11:33 Dose: 1 % Sodium Hypochlorite (Dakins Solution 0.25%) 0.25 ml EXT DAILY [facility] Last Admin: 12/29/17 10:43 Dose: 0.25 ml - Labs Labs: 12/28/17 08:28 12/28/17 08:28 - Constitutional Appears: Well, No Acute Distress - Head Exam Head Exam: NORMAL INSPECTION - Eye Exam Eye Exam: Normal appearance Pupil Exam: NORMAL ACCOMODATION - ENT Exam ENT Exam: Normal Exam - Neck Exam Neck Exam: Normal Inspection - Respiratory Exam Respiratory Exam: Clear to Ausculation Bilateral, NORMAL BREATHING PATTERN - Cardiovascular Exam Cardiovascular Exam: REGULAR RHYTHM - GI/Abdominal Exam GI & Abdominal Exam: Soft, Normal Bowel Sounds - Rectal Exam Rectal Exam: Deferred - Extremities Exam Additional comments: Cellulitis of the right lower leg. - Neurological Exam Neurological Exam: Alert, Awake - Psychiatric Exam Psychiatric exam: Anxious - Skin Skin Exam: Dry Assessment and Plan (1) Cellulitis Assessment & Plan: On IV antibiotics. Status: Acute (2) Hypertension Status: Chronic (3) Diabetes Status: Acute
[2017-12-30] MEDS: AMPicillin 2 GM in Sodium Chloride 100 ML IVPB SCH ×4 (02:26→19:31)
[2017-12-30] MEDS: Saccharomyces Boulardi 250 mg Cap PO SCH ×2 (10:04→19:00)
[2017-12-30] MEDS: Enoxaparin 40 mg Syringe SC SCH (10:04)
[2017-12-30] MEDS: Dakin's Topical 0.25%-Half Strength (480 ml) EXT SCH (10:05)
[2017-12-30] MEDS: Collagenase 250 Units/gm Ointment(30 gm) TOP SCH (10:05)
[2017-12-30] MEDS: Silver Sulfadiazine 1% Cream (20 gm) TOP SCH (10:05)
--- NOTE | 2017-12-30 10:57 | CP.PCM.PN ---
Subjective - Date & Time of Evaluation Date of Evaluation: 12/30/17 Time of Evaluation: 10:53 - Subjective Subjective: Podiatry Progress Note for Dr. Patton 67F with right anterior leg wound seen at bedside. Patient is AAO x 3 and NAD, resting comfortably in bed. States that pain is virtually gone with only minimal , sporadic episodes occurring. Denies any acute overnight events or new pedal complaints at this time. Denies any recent N/V/F/C/CP/SOB/D/posterior calf pain when squeezed. Objective - Vital Signs/Intake and Output Vital Signs (last 24 hours): Temp Pulse Resp BP Pulse Ox 98.6 F 63 20 138/80 96 12/30/17 07:20 12/30/17 07:20 12/30/17 07:20 12/30/17 10:04 12/30/17 07:20 Intake and Output: 12/30/17 12/30/17 06:59 18:59 Intake Total 840 Output Total 500 Balance 340 - Medications Medications: Current Medications Acetaminophen (Tylenol 325mg Tab) 650 mg PO Q6 PRN PRN Reason: Headache Last Admin: 12/29/17 08:46 Dose: 650 mg Collagenase (Santyl) 0 gm TOP DAILY [facility] Last Admin: 12/30/17 10:05 Dose: 1 tcp Enalapril Maleate (Vasotec) 20 mg PO DAILY [facility] Last Admin: 12/30/17 10:04 Dose: 20 mg Enoxaparin Sodium (Lovenox) 40 mg SC DAILY [facility] Last Admin: 12/30/17 10:04 Dose: 40 mg Ampicillin 2 gm/ Sodium (Chloride) 100 mls @ 50 mls/hr IVPB Q6H [facility] PRN Reason: Protocol Last Admin: 12/30/17 07:56 Dose: 50 mls/hr Metronidazole (Flagyl) 500 mg PO Q8 [facility] PRN Reason: Protocol Last Admin: 12/30/17 05:48 Dose: 500 mg Saccharomyces Boulardii (Florastor) 500 mg PO BID [facility] Last Admin: 12/30/17 10:04 Dose: 500 mg Silver Sulfadiazine (Silvadene 1% 20 Gm) 0 ea TOP DAILY [facility] Last Admin: 12/30/17 10:05 Dose: 1 % Sodium Hypochlorite (Dakins Solution 0.25%) 0.25 ml EXT DAILY [facility] Last Admin: 12/30/17 10:05 Dose: 0.25 ml - Labs Labs: 12/28/17 08:28 12/28/17 08:28 - Constitutional Appears: Well, Non-toxic, No Acute Distress - Extremities Exam Additional comments: Right Lower Extremity Exam: VASC: DP and PT fully palpable, CFT less than 3 seconds X 10, TG warm to warm WNL with no increased warmth in periwound region. No edema noted b/l. NEURO: Epicritic and protective sensation grossly intact DERM: 5 cm x 5 cm x 0.1 cm ulceration noted to the right anterior leg proximal to the ankle joint, wound bed is mostly granular skin with central patch of fibrotic skin that appears to be slowly improving,some scar formation noted as well, no probe to bone, no malodor, minimal drainage noted ORTHO: patient complains of pain on palpation to the wound area but no pain when wound is left alone - Neurological Exam Neurological Exam: Alert, Awake - Psychiatric Exam Psychiatric exam: Normal Affect, Normal Mood Assessment and Plan - Assessment and Plan (Free Text) Assessment: 67F with right anterior leg wound seen at bedside. Plan: Patient seen and evaluated Plan discussed with Dr. Patton Continue abx and antifungals per ID Wound Cx: E coli, Enterococcus Faecalis Ankle X-ray/Tib Fib X-ray (12/24/17): no fx/dislocation, no soft tissue emphysema noted, minimal soft tissue swelling Venous duplex: No evidence of deep or superficial DVT RLE HgA2c: 6.7 MRI: Prominent cellulitis of the lower extremity. No evidence of OM at that level Wound dressed with silvadene, santyl, Telfa, ABD, DSD No plan for surgical intervention at this time Podiatry will continue to follow while patient in house
--- NOTE | 2017-12-30 20:05 | CP.PCM.PN ---
Subjective - Date & Time of Evaluation Date of Evaluation: 12/30/17 Time of Evaluation: 20:01 - Subjective Subjective: INFECTIOUS DISEASE PROGRESS NOTES PACO LEUNG MD, FACP 3T 361-B 12/30/2017 CHART REVIEWED PT EXAMINED WITH DR MARINO CASE DISCUSSED CLINICALLY FINALLY RESPONDING TO AGGRESSIVE IV AB CHANGES DONE 24 HRS AGO OR SO, ALSO TO CONTINUE ITRACONAZOLE 200 PO OD. LUNGS CKEAR COR RR ABD SOFT WOUND IS CLEAR OF CELLULITIS AND THE CENTER AREA IS FINALLY CLEARING MEDICALLY/ SURGICALLY FOR HOME TOMORROW ON: AMOXIL 500MG PO TID AND CONTINUE ITACONAZOLE 200MG PO OD. SHE WILL SEE ME WEDNESDAY AFTEROON IN MY OFFICE. THANK YOU PACO LEUNG MD, FACP Objective - Vital Signs/Intake and Output Vital Signs (last 24 hours): Temp Pulse Resp BP Pulse Ox 98.1 F 60 20 132/76 96 12/30/17 16:02 12/30/17 16:02 12/30/17 16:02 12/30/17 16:02 12/30/17 16:02 Intake and Output: 12/30/17 12/31/17 18:59 06:59 Intake Total 760 Balance 760 - Medications Medications: Current Medications Acetaminophen (Tylenol 325mg Tab) 650 mg PO Q6 PRN PRN Reason: Headache Last Admin: 12/29/17 08:46 Dose: 650 mg Collagenase (Santyl) 0 gm TOP DAILY [facility] Last Admin: 12/30/17 10:05 Dose: 1 tcp Enalapril Maleate (Vasotec) 20 mg PO DAILY [facility] Last Admin: 12/30/17 10:04 Dose: 20 mg Enoxaparin Sodium (Lovenox) 40 mg SC DAILY [facility] Last Admin: 12/30/17 10:04 Dose: 40 mg Ampicillin 2 gm/ Sodium (Chloride) 100 mls @ 50 mls/hr IVPB Q6H [facility] PRN Reason: Protocol Last Admin: 12/30/17 19:31 Dose: 50 mls/hr Saccharomyces Boulardii (Florastor) 500 mg PO BID [facility] Last Admin: 12/30/17 19:00 Dose: 500 mg Silver Sulfadiazine (Silvadene 1% 20 Gm) 0 ea TOP DAILY [facility] Last Admin: 12/30/17 10:05 Dose: 1 % - Labs Labs: 12/28/17 08:28 12/28/17 08:28 Assessment and Plan (1) Sporotrichosis Status: Acute (2) Cellulitis Status: Acute (3) Diabetes Status: Acute (4) Hypertension Status: Chronic (5) Affective personality disorder Status: Suspected
--- NOTE | 2017-12-30 23:05 | CP.PCM.PN ---
Subjective - Date & Time of Evaluation Date of Evaluation: 12/30/17 Time of Evaluation: 19:30 - Subjective Subjective: Patient has no complaint. Right lower leg cellulitis improving with IV antibiotics. Objective - Vital Signs/Intake and Output Vital Signs (last 24 hours): Temp Pulse Resp BP Pulse Ox 98.1 F 60 20 132/76 96 12/30/17 16:02 12/30/17 16:02 12/30/17 16:02 12/30/17 16:02 12/30/17 16:02 Intake and Output: 12/30/17 12/31/17 18:59 06:59 Intake Total 760 Balance 760 - Medications Medications: Current Medications Acetaminophen (Tylenol 325mg Tab) 650 mg PO Q6 PRN PRN Reason: Headache Last Admin: 12/29/17 08:46 Dose: 650 mg Collagenase (Santyl) 0 gm TOP DAILY [facility] Last Admin: 12/30/17 10:05 Dose: 1 tcp Enalapril Maleate (Vasotec) 20 mg PO DAILY [facility] Last Admin: 12/30/17 10:04 Dose: 20 mg Enoxaparin Sodium (Lovenox) 40 mg SC DAILY [facility] Last Admin: 12/30/17 10:04 Dose: 40 mg Ampicillin 2 gm/ Sodium (Chloride) 100 mls @ 50 mls/hr IVPB Q6H [facility] PRN Reason: Protocol Last Admin: 12/30/17 19:31 Dose: 50 mls/hr Saccharomyces Boulardii (Florastor) 500 mg PO BID [facility] Last Admin: 12/30/17 19:00 Dose: 500 mg Silver Sulfadiazine (Silvadene 1% 20 Gm) 0 ea TOP DAILY [facility] Last Admin: 12/30/17 10:05 Dose: 1 % - Labs Labs: 12/28/17 08:28 12/28/17 08:28 - Constitutional Appears: No Acute Distress - Head Exam Head Exam: NORMOCEPHALIC - Eye Exam Eye Exam: Normal appearance Pupil Exam: NORMAL ACCOMODATION - ENT Exam ENT Exam: Normal Exam - Neck Exam Neck Exam: Normal Inspection - Respiratory Exam Respiratory Exam: Clear to Ausculation Bilateral, NORMAL BREATHING PATTERN - Cardiovascular Exam Cardiovascular Exam: REGULAR RHYTHM - GI/Abdominal Exam GI & Abdominal Exam: Soft, Normal Bowel Sounds - Rectal Exam Rectal Exam: Deferred - Extremities Exam Additional comments: Cellulitis of the lower right leg. - Back Exam Back Exam: NORMAL INSPECTION - Neurological Exam Neurological Exam: Alert, Awake, Oriented x3 - Psychiatric Exam Psychiatric exam: Anxious Assessment and Plan (1) Cellulitis Assessment & Plan: To switch to PO antibiotics and discharge home in AM . Status: Acute (2) Hypertension Status: Chronic (3) Diabetes Status: Acute
[2017-12-31] MEDS: AMPicillin 2 GM in Sodium Chloride 100 ML IVPB SCH ×3 (02:44→14:25)
[2017-12-31 08:12] VITALS: BP 148/81; PULSE 60; TEMP 98.6; O2SAT 96
[2017-12-31] MEDS: Saccharomyces Boulardi 250 mg Cap PO SCH (09:12)
[2017-12-31] MEDS: Enoxaparin 40 mg Syringe SC SCH (09:12)
[2017-12-31] MEDS: Silver Sulfadiazine 1% Cream (20 gm) TOP SCH (09:14)
[2017-12-31] MEDS: Collagenase 250 Units/gm Ointment(30 gm) TOP SCH (09:14)
--- NOTE | 2017-12-31 13:49 | CP.PCM.PN ---
Subjective - Date & Time of Evaluation Date of Evaluation: 12/31/17 Time of Evaluation: 13:44 - Subjective Subjective: Podiatry Progress Note for Dr. Patton 67F with right anterior leg wound seen at bedside with Dr. Patton. Patient is AAO x 3 and NAD, resting comfortably in bed. States that she has not had any pain to the wound all day. Denies any acute overnight events or new pedal complaints at this time. Denies any recent N/V/F/C/CP/SOB/D/posterior calf pain when squeezed. Denies any new acute signs of infection Objective - Vital Signs/Intake and Output Vital Signs (last 24 hours): Temp Pulse Resp BP Pulse Ox 98.6 F 60 20 148/81 96 12/31/17 08:11 12/31/17 08:11 12/31/17 08:11 12/31/17 09:12 12/31/17 08:11 Intake and Output: 12/31/17 12/31/17 06:59 18:59 Intake Total 700 Balance 700 - Medications Medications: Current Medications Acetaminophen (Tylenol 325mg Tab) 650 mg PO Q6 PRN PRN Reason: Headache Last Admin: 12/29/17 08:46 Dose: 650 mg Collagenase (Santyl) 0 gm TOP DAILY [facility] Last Admin: 12/31/17 09:14 Dose: Not Given Enalapril Maleate (Vasotec) 20 mg PO DAILY [facility] Last Admin: 12/31/17 09:12 Dose: 20 mg Enoxaparin Sodium (Lovenox) 40 mg SC DAILY [facility] Last Admin: 12/31/17 09:12 Dose: 40 mg Ampicillin 2 gm/ Sodium (Chloride) 100 mls @ 50 mls/hr IVPB Q6H [facility] PRN Reason: Protocol Last Admin: 12/31/17 08:51 Dose: 50 mls/hr Saccharomyces Boulardii (Florastor) 500 mg PO BID [facility] Last Admin: 12/31/17 09:12 Dose: 500 mg Silver Sulfadiazine (Silvadene 1% 20 Gm) 0 ea TOP DAILY [facility] Last Admin: 12/31/17 09:14 Dose: Not Given - Labs Labs: 12/28/17 08:28 12/28/17 08:28 - Constitutional Appears: Well, Non-toxic, No Acute Distress - Extremities Exam Additional comments: Right Lower Extremity Exam: VASC: DP and PT fully palpable, CFT less than 3 seconds X 10, TG warm to warm WNL with no increased warmth in periwound region. No edema noted b/l. NEURO: Epicritic and protective sensation grossly intact DERM: 5 cm x 5 cm x 0.1 cm ulceration noted to the right anterior leg proximal to the ankle joint, wound bed is mostly granular skin with central patch of fibrotic skin. Fibrous tissue is noted to be slowly sloughing off of leg with granular tissue noted underneath. No probe to bone, no malodor, minimal drainage noted ORTHO: Minimal pain on palpation to wound. No other gross deformities noted - Neurological Exam Neurological Exam: Alert, Awake, Oriented x3 - Psychiatric Exam Psychiatric exam: Normal Affect, Normal Mood Assessment and Plan - Assessment and Plan (Free Text) Assessment: 67F with right anterior leg wound Plan: Patient seen and evaluated with Dr. Patton Afebrile Continue abx per ID Wound Cx: E coli, Enterococcus Faecalis Ankle X-ray/Tib Fib X-ray (12/24/17): no fx/dislocation, no soft tissue emphysema noted, minimal soft tissue swelling Venous duplex: No evidence of deep or superficial DVT RLE HgA2c: 6.7 MRI: Prominent cellulitis of the lower extremity. No evidence of OM at that level Wound dressed with Santyl, Telfa, ABD, DSD No plan for further surgical intervention at this time Patient instructed on proper at home wound care Upon discharge, patient will follow up with Dr. Patton/Damaris in their office Podiatry will continue to follow while patient in house
== END 2017-12-31 14:00 | disposition home or self-care (01) | DRG 603 ==
LOC: C.ER 08:23 → EDBD 08:23 → C.9E 11:03 → C.3T 15:47
PROVIDERS: ADMIT Internal Medicine Cardiovascular Disease; ATTEND Internal Medicine Cardiovascular Disease
DX: L03.115 Cellulitis of right lower limb (principal); E11.9 Type 2 diabetes mellitus without complications; I10 Essential (primary) hypertension; Z87.891 Personal history of nicotine dependence; Z98.42 Cataract extraction status, left eye; F34.0 Cyclothymic disorder; B42.9 Sporotrichosis, unspecified